=== PATIENT | male | born 1965 | race Two or more races ===

== ENCOUNTER 2021-04-26 14:56 | Outpatient (REF) | payer MEDICARE, MEDICAID, SELFPAY ==
[2021-04-26 16:01] LABS: COVID-19 Test Negative (Negative)
== END 2021-04-26 14:57 | disposition home or self-care (01) ==
LOC: HO.LAB 14:56
PROVIDERS: Visit Provider Internal Medicine
DX: Z20.822 Contact with and (suspected) exposure to COVID-19 (principal)
CPT/HCPCS: 36415; 87635; C9803

== ENCOUNTER 2023-03-11 06:05 | Emergency (ER) | payer MEDICARE, MEDICAID, SELFPAY ==
[2023-03-11 06:07] VITALS: BP 161/87; PULSE 106; RESP 16; TEMP 37.5; O2SAT 95; BMI 26.6
--- NOTE | 2023-03-11 06:46 | PC.NURSE ---
Pt presents to ED with a rash in the groin area. Pt states it has been present for a year. He has been treated with creams that make the rash worse. Pt states he is in 9/10 pain at rest, and sitting down increases the pain. Pt denies SOB, chest pain, or trouble using the bathroom. Pt did endorse nausea, no vomiting. Pt has not been able to sleep or eat in two days due to the pain.
--- NOTE | 2023-03-11 07:07 | ED_ITS ---
HPI - Skin/Abscess/Foreign Bdy General Chief complaint: Skin/Abscess/Foreign Body Stated complaint: Rash Time Seen by Provider: 03/11/23 06:30 Source: patient and RN notes reviewed Mode of arrival: ambulatory Limitations: no limitations History of Present Illness HPI narrative: This is a 57-year-old male, with history of hypertension, presenting to the emergency department for evaluation of groin rash for the last year. Patient states that the rash is painful and extremely itchy. He states that he went to communications and signals supervisor for this problem and was prescribed mometasone, calcipotriene and patroleom which she has been using and these creams are only making his rash worse. He denies any fevers or chills. Denies any urinary symptoms. No other complaints or concerns at this time. MD complaint: rash Onset (ago): year(s) Location: genitals Quality: burning and pruritic Pain Consistency: constant Relieving factors: none Exacerbating factors: none Context: none Associated symptoms: denies other symptoms Treatments prior to arrival: none Related Data Previous Rx's Medication Instructions Recorded clotrimazole 1 % topical cream 1 appl topical BID 4 weeks #45 03/11/23 grams Allergies Allergy/AdvReac Type Severity Reaction Status Date / Time No Known Allergies Allergy Verified 03/11/23 07:06 Review of Systems Review of Systems: Yes all other systems are reviewed and are negative [facility] Social History Social History Smoked in Last 30 Days: No Use of substances other than those prescribed or required for medical reasons: No Advance Directives: No Advance Directives Information Provided: No Physical Exam Vital Signs: Vital Signs: Last Vital Signs Temp 98.7 F 03/11/23 07:30 Pulse 84 03/11/23 07:30 Resp 17 03/11/23 07:30 BP 126/87 03/11/23 07:30 Pulse Ox 96 03/11/23 07:30 O2 Del Method Room Air 03/11/23 07:30 BMI result Body Mass Index 26.6 Const: Other: General: Awake, alert, and oriented X3. No acute distress. HEENT: Normal inspection CVS: Normal heart rate and rhythm. Pulses normal. Respiratory: No respiratory distress Skin: Warm, dry, no rashes noted to exposed skin. Normal skin color. Normal skin turgor. Extremities: Normal to inspection : Examination performed with crusher supervisor (Sharmila, Nurse, and supervising physician, Dr. Hyde) present. Scrotum and intergrinous region of thighs with beefy, red and macerated skin. Does not extend to the perineum. No profound warmth. Foul yeast odor noted. Neuro: Oriented X 3. No motor deficit. No sensory deficit. Course Reevaluation(s) Reevaluation #1: Blood glucose 141, patient had a coffee with sugar prior to arrival. Will discharge on antifungal cream twice a day for the next 4 weeks. Advised to return with any new or worsening symptoms. Patient agrees with plan. Patient stable for discharge. Time: 07:39 Medical Decision Making Medical Decision Making MDM Narrative: This is a 57-year-old male, with history of hypertension, presenting to the emergency department for evaluation of groin rash for the last year. On arrival, mildly hypertensive at 161/87, pulse 106. Patient tearful during examination due to pain. DDX candidia, cellulitis, scrotal abscess, contact dermatitis. Examination findings consistent with fungal rash. Does not appear cellulitic. Discussed findings with patient. Advised to discontinue the mometasone as this is likely causing the rash to worsen. Advised to cleanse area with gentle soap and apply topical cream for the next 4 weeks. Patient understands and agrees with plan. Will obtain blood glucose level to ensure no hyperglycemia. Differential Diagnosis Differential Diagnoses: The differential diagnosis associated with the presentation includes See above Lab Data Labs: Lab Results 03/11/23 Range/Units 07:36 POC Glucose 141 H (60-115) mg/dL Discharge Plan Discharge Clinical Impression: Tinea cruris Patient Disposition: Home, Self-Care Instructions: Jock Itch (ED), Skin Yeast Infection (ED) Additional Instructions: You presented to the emergency department due to a groin rash. Your rash is likely due to a fungal infection. Please apply topical cream for the next 4 weeks. You may gently wash area with sensitive soap. Follow-up with primary care physician. Any new or worsening symptoms occur, please return for re-evaluation. Prescriptions: New clotrimazole 1 % cream 1 appl topical BID 28 Days Qty: 45 0RF Stand Alone Forms: Work/School Release Interventions: ED Discharge Assessment Last Done: 03/11/23 07:56 Discharge Date/Time: 03/11/23 07:56
[2023-03-11 07:30] VITALS: BP 126/87; PULSE 84; RESP 17; TEMP 37.1; O2SAT 96
[2023-03-11 07:40] LABS: Glucose, Whole Blood 141 mg/dL (60-115)
--- NOTE | 2023-03-11 07:48 | PC.NURSE ---
PT IS A/O X 4 NO SOB/ELYSE NOTED SPEAKS IN FULL SENTENCES. PT C/O PURVI GROIN PAIN. PT HAS A FUNGAL INFECTION TO PURVI GROIN AND POST SCROTAL AREA WITH A VERY UNPLEASANT ODOUR WHICH PT STATES IS VERY PAINFUL. PT SEEN BY MLP AWARE OF PLAN OF CARE.
== END 2023-03-11 07:56 | disposition home or self-care (01) ==
PROVIDERS: Emergency Provider Emergency Medicine
DX: B35.6 Tinea cruris (principal)
CPT/HCPCS: 82947; 99283; 99284

== ENCOUNTER 2023-04-09 12:52 | Emergency (ER) | payer MEDICARE, MEDICAID, SELFPAY ==
[2023-04-09 13:23] VITALS: BP 169/92; PULSE 90; RESP 16; TEMP 37.6; O2SAT 100; BMI 28.1
--- NOTE | 2023-04-09 13:26 | ED_ITS ---
HPI - Skin/Abscess/Foreign Bdy General Chief complaint: Wound/Laceration Stated complaint: Jock itch Time Seen by Provider: 04/09/23 15:40 Source: patient Mode of arrival: ambulatory Limitations: no limitations History of Present Illness HPI narrative: This is a 57-year-old male presenting with recurrent rashes in the groin region, patient has been seen here and by Dermatology for this rash multiples times. He reports Dermatology sent him a medication that did not help however the cream that he was given here helped. Patient reports this rash looks exactly like when he has gotten in the past. Slightly itchy and foul smelling. Denies fevers, chills, nausea, vomiting, abdominal pain, chest pain, shortness of breath. Related Data Previous Rx's Medication Instructions Recorded clotrimazole 1 % topical cream 1 appl topical BID 4 weeks #45 03/11/23 grams clotrimazole 1 % topical cream 1 appl topical BID 4 weeks #45 04/09/23 grams fluconazole 150 mg tablet 150 mg PO Q3D 2 doses #2 tabs 04/09/23 ketorolac 10 mg tablet 10 mg PO TID PRN pain 5 days #15 04/09/23 tabs Allergies Allergy/AdvReac Type Severity Reaction Status Date / Time No Known Allergies Allergy Verified 03/11/23 07:06 Review of Systems Review of Systems: Constitutional : No Weight loss, No Fever, No Chills, No Fatigue, No Malaise ENT/Mouth : No sore throat, No Rhinorrhea Eyes: No Eye Pain, No Swelling, No Redness Cardiovascular : No Chest Pain, No SOB, No Dyspnea on Exertion, No Orthopnea, No Edema, No Palpitations Respiratory : No Cough, No Sputum, No Wheezing Gastrointestinal : No Nausea, No Vomiting, No Diarrhea, No Constipation, No abdominal Pain, No Hematochezia, No Melena Genitourinary : No Dysuria, No Urinary Frequency, No Hematuria, Musculoskeletal : No joint pain, No Myalgias, No Joint Swelling Skin : No Skin Lesions, + rash Neuro : No Weakness, No Numbness, No Dizziness, No Headache Psych : No Anxiety/Panic, No Depression All other systems reviewed and are negative Yes all other systems are reviewed and are negative PMFSH Past Medical History Attestation statement: The following information was validated with the patient. Source: old records reviewed and nursing notes reviewed Physical Exam Vital Signs: Vital Signs: Last Vital Signs Temp 98.8 F 04/09/23 16:22 Pulse 88 04/09/23 16:22 Resp 18 04/09/23 16:22 BP 168/88 H 04/09/23 16:22 Pulse Ox 99 04/09/23 16:22 O2 Del Method Room Air 04/09/23 16:22 BMI result Body Mass Index 28.1 vss Appearance: Alert.? Oriented X3.? No acute distress.? Head: Normocephalic, atraumatic, no step-offs or deformities Eyes: Pupils equal, round and reactive to light.? Neck: Normal inspection.? Neck supple.? CVS: Pulses normal.? Respiratory: No respiratory distress. Skin: Skin warm and dry.? Normal skin color.? Normal skin turgor.? Extremities: No lower extremity edema.? No calf ttp. 5/5 strength to bilateral upper and lower extremities Sensative exam:Examination performed with cardiovascular surgical tech Odalis OVIEDO Scrotum and intergrinous region of thighs with beefy, red and macerated skin tender to touchDoes not extend to the perineum. No profound warmth. Foul yeast odor noted. Neuro: Oriented X 3.? No motor deficit.? No sensory deficit. CN 2-12 intact Course Course Course Narrative: This is a rapid medical exam. Deferred additional HPI, ROS, PE to primary provider. 56 yo male here with itching rash to groin x 2 yrs. Unable to visualize in triage. VSS Medical Decision Making Medical Decision Making [facility] Narrative: 1623 57-year-old male presents with rash in groin region ongoing for the past year and a half PE Examination w/ scrotum and intergrinous region of thighs with beefy, red and macerated skin, tender to touch. Does not extend to the perineum. No profound warmth. Foul yeast odor noted. History and physical exam concerning for fungal infection/rash including differentials Nikia, cellulitis. Unlikely necrotizing infection, abscess, fourniers Plan- will d/c w/ diflucan and clotrimazole. Differential Diagnosis Differential Diagnoses: The differential diagnosis associated with the presentation includes History and physical exam concerning for fungal infection/rash including differentials Nikia, cellulitis. Unlikely necrotizing infection, abscess, fourniers Admission/Observation Consideration of admission/observation: Escalation of care including admission/observation considered Unlikely Tests considered The following testing was considered but not selected: No signs of abscess or gangrene no indication for imaging Critical Care Time Critical Care Time Critical Care Time: No Discharge Plan Discharge Clinical Impression: Adonay amezcua Patient Disposition: Home, Self-Care Instructions: Adonay Amezcua (ED) Additional Instructions: Take your medications as prescribed. If you were prescribed antibiotics today, it is important that you take your medication to their entirety, do not skip any doses, do not finish them early. Follow-up with your primary care provider this week. Return to the emergency department with new or worsening symptoms. Such as fevers, chills, chest pain, shortness of breath, nausea, vomiting, dizziness, headache, vision changes, lethargy In case of emergency call 911 Toradol has been sent to your pharmacy, you tolerated this well in the department. Please take this as prescribed do not take this with ibuprofen, or other NSAIDs, do not mix this with alcohol. Side effects of this medication including increased risk for bleeding and possible kidney injury. Prescriptions: New clotrimazole 1 % cream 1 appl topical BID 28 Days Qty: 45 0RF fluconazole 150 mg tablet 150 mg PO Q3D Qty: 2 0RF ketorolac 10 mg tablet 10 mg PO TID PRN (Reason: pain) 5 Days Qty: 15 0RF No Action clotrimazole 1 % cream 1 appl topical BID 28 Days Qty: 45 0RF Referrals: Physician,Unknown J [Primary Care Provider] - Stand Alone Forms: Work/School Release
[2023-04-09 16:22] VITALS: BP 168/88; PULSE 88; RESP 18; TEMP 37.1; O2SAT 99
[2023-04-09] MEDS: Ketorolac Tromethamine 30 MG/ML VIAL IM (16:40)
== END 2023-04-09 17:00 | disposition home or self-care (01) ==
LOC: HO.ED 16:59
PROVIDERS: Emergency Provider Emergency Medicine
DX: B35.6 Tinea cruris (principal)
CPT/HCPCS: 96372; 99283; 99284; J1885

== ENCOUNTER 2023-05-16 15:31 | Inpatient (IN) | payer MEDICARE, MEDICAID, SELFPAY ==
[2023-05-16 15:37] VITALS: BP 122/68; PULSE 114; O2SAT 98
[2023-05-16 16:05] VITALS: BP 108/76; PULSE 111; RESP 20; TEMP 37.1; O2SAT 97; BMI 26.6
--- NOTE | 2023-05-16 16:05 | ED.DIZZY ---
HPI - Dizziness General Chief Complaint: Abdominal Pain Stated Complaint: N/V/D,DIZZY PER EMS Time Seen by Provider: 05/16/23 18:15 Source: patient, RN notes reviewed and old records reviewed Mode of arrival: ambulatory Limitations: no limitations History of Present Illness HPI Narrative: 57-year-old male with past medical history significant for colon cancer presents for evaluation of vomiting and weakness. Patient reports that he started last night with generalized abdominal pain, significant vomiting and watery diarrhea Denies any black or bloody stool He denies any chest pain, shortness of breath, cough Denies any known sick contacts fevers, chills Patient reports he has no history of cardiac disease and is not on dialysis. He states he has had issues in the past with his kidneys requiring IV hydration Related Data Previous Rx's Medication Instructions Recorded clotrimazole 1 % topical cream 1 appl topical BID 4 weeks #45 03/11/23 grams clotrimazole 1 % topical cream 1 appl topical BID 4 weeks #45 04/09/23 grams fluconazole 150 mg tablet 150 mg PO Q3D 2 doses #2 tabs 04/09/23 ketorolac 10 mg tablet 10 mg PO TID PRN pain 5 days #15 04/09/23 tabs Allergies Allergy/AdvReac Type Severity Reaction Status Date / Time No Known Allergies Allergy Verified 05/16/23 16:07 Review of Systems Constitutional: Constitutional: Denies chills and Denies fever(s) Eyes: Eyes: Denies blurry vision ENT: Denies sore throat Cardiovascular: Cardiovascular: Denies chest pain and Denies dyspnea Respiratory: Respiratory: Denies cough and Denies dyspnea Gastrointestinal: Gastrointestinal: Reports abdominal pain, Denies melena, Denies hematochezia, Denies constipation, Denies diarrhea, Reports nausea and Reports vomiting Genitourinary: Comments: Decreased urination Musculoskeletal: Musculoskeletal: Denies back pain Integumentary/Breasts: Skin/Breast: Denies rash PMFSH Social History Social History Smoked in Last 30 Days: Yes Use of substances other than those prescribed or required for medical reasons: Yes Substance Use Type: Marijuana Advance Directives: No Physical Exam Vital Signs: Vital Signs: Last Vital Signs Temp 98 F 05/16/23 18:00 Pulse 107 H 05/16/23 18:00 Resp 20 05/16/23 18:00 BP 109/86 05/16/23 18:00 Pulse Ox 98 05/16/23 18:00 O2 Del Method Room Air 05/16/23 18:00 BMI result Body Mass Index 26.6 Const: General: healthy appearing, comfortable, no acute distress, alert and awake Nutritional Appearance: well nourished Orientation/consciousness: patient oriented x3 HEENT: Head: Yes normocephalic and Yes atraumatic Eyes: Eyelids: Yes eyelids normal Conjunctivae: conjunctivae normal Sclerae: sclerae normal Corneas: corneas normal Pupils: Equal, round and reactive pupils present EOM: EOMs intact bilaterally Neck: Neck: Yes full ROM Resp: Effort & Inspection: normal respiratory effort, able to speak in complete sentences, no audible wheezes and not labored Auscultation: clear to auscultation bilaterally Cardio: Rate: regular rate Rhythm: regular rhythm GI: Inspection: No distended Palpation (GI): Soft to palpation, not firm, nontender, no guarding and not rigid Skin: General skin exam: elasticity normal Neuro: General: patient oriented x3 Cranial nerves: Yes Equal, round and reactive pupils present and Yes Bilaterally intact EOM present Cognition (Neuro): normal cognition Course Course Course Narrative: RME: 57 yo w/ PMHx HTN, presenting to the ED c/o diarrhea, nausea, vomiting, abdominal pain, lightheadedness & weakness x yesterday. EKG, labs, UA, orthostatics ordered Full HPI, ROS and PE to be performed by primary ED provider. Reevaluation(s) Reevaluation #1: Patient remains with abdominal pain and nausea, continues is 90 chest pain. Repeat troponin was 183. Discussed with the hospitalist will admit the patient for MARU. It is felt that the elevated troponins likely related to the significant kidney injury. His EKG is nonischemic, he has never had chest pain, therefore we will not administer any heparin or aspirin Time: 20:26 Medications Administered Generic Name Dose Route Start Last Admin Trade Name Freq PRN Reason Stop Dose Admin Sodium Chloride 1,000 mls @ 999 mls/hr 05/16/23 18:30 05/16/23 18:30 Ns IV 05/16/23 20:30 999 mls/hr .Q1H1M ANITHA Administration Discontinued Medications Generic Name Dose Route Start Last Admin Trade Name Freq PRN Reason Stop Dose Admin Metoclopramide HCl 10 mg 05/16/23 18:23 05/16/23 18:30 Metoclopramide Hcl 10 Mg/2 Ml Vial IVPUSH 05/16/23 18:24 10 mg ONCE ONE Administration Medical Decision Making Medical Decision Making [facility] Narrative: 57-year-old male presents for evaluation of vomiting abdominal pain and weakness. He has numerous lab abnormalities including a white count 11.1, hemoglobin 19.4 and hematocrit 56.5. The elevated hemoglobin hematocrit is likely related to dehydration as the patient's renal function is also significantly elevated he has a creatinine of 4.15. We do not have any previous lab value is in our system but the patient states he does not have chronic kidney disease. Will get a CT scan of the abdomen pelvis to rule out obstructive uropathy. His CO2 is low at 18 with an anion gap of 21 which is likely related to metabolic acidosis from vomiting and diarrhea. Patient's troponin is elevated to 141.4. I suspect this is likely related to the renal disease lateral than primary cardiac issue as the patient has not had any chest pain. We will repeat a troponin and a new EKG. Initial EKG was sinus tachycardia rate of 109 beats per minute. There is some questionable changes in the ST segments inferior leads. Differential Diagnosis Differential Diagnoses: The differential diagnosis associated with the presentation includes Acute kidney injury Dehydration Urinary obstruction NSTEMI Coronary artery disease Weakness Viral symptom Admission/Observation Consideration of admission/observation: Escalation of care including admission/observation considered (Patient will require admission for acute kidney injury, dehydration) Consult Healthcare Provider Management of the patient was discussed with: Hospitalist (Dr. Gomes will admit the patient for acute kidney injury in the setting of vomiting and diarrhea) Lab Data [facility] Lab Attestation statement: I reviewed the patient's lab results. As above 05/16/23 16:27 05/16/23 16:27 Labs: Lab Results 05/16/23 05/16/23 05/16/23 Range/Units 16:27 18:44 19:50 WBC 11.1 H (4.8-10.8) X10*3/uL RBC 6.71 H (4.60-5.80) X10*6/uL Hgb 19.4 H (14.0-18.0) g/dl Hct 56.5 H (42.0-52.0) % MCV 84.2 (80.0-98.0) fL MCH 28.9 (27.0-33.0) pg MCHC 34.3 (31.0-36.0) g/dl RDW 13.4 (11.0-16.0) % Plt Count 250 (160-400) X10*3/uL MPV 9.6 (9.4-12.4) fL Immature Gran % (Auto) 0.5 H (0.0-0.4) % Neut % (Auto) 85.1 H (45-73) % Lymph % (Auto) 7.4 L (20-40) % [place] % (Auto) 6.6 (2-11) % Eos % (Auto) 0.0 (0-4) % Baso % (Auto) 0.4 (0-2) % Lymph # (Auto) 0.8 L (1.2-4.9) X10*3/uL [place] # (Auto) 0.7 (0.1-1.2) X10*3/uL Eos # (Auto) 0.0 (0.0-0.4) X10*3/uL Baso # (Auto) 0.0 (0.0-0.2) X10*3/uL Abs Immat Gran (auto) 0.05 H (0.00-0.03) X10*3/uL Absolute Neuts (auto) 9.5 H (2.0-8.3) x10*3/uL Absolute Nucleated RBC 0.000 (0.0-0.012) X10*3/uL Nucleated RBC % (auto) 0.0 (0.0-0.2) /100WBC O2 Saturation 99.0 % ABG pH at Pt Temp 7.41 (7.35-7.45) ABG pCO2 at Pt Temp 23 L (32-45) mmHg ABG pO2 at Pt Temp 102 (83-108) mmHg ABG HCO3 15 L (22-26) mmol/L ABG Base Excess (Actual) -6.6 mmol/L Sodium 142 (135-145) mmol/L Potassium 3.5 (3.3-5.1) mmol/L Chloride 107 (96-108) mmol/L Carbon Dioxide 18 L (22-29) mmol/L Anion Gap 21 H (12-20) BUN 51 H (9-16) mg/dL Creatinine 4.15 H* (0.5-1.4) mg/dL Estim Creat Clear Calc 18.5 Estimated GFR 15 Random Glucose 134 H (60-115) mg/dL Calcium 11.1 H (8.4-10.2) mg/dL Magnesium 2.3 (1.6-2.6) mg/dL Total Bilirubin 1.0 (0.0-1.0) mg/dL Direct Bilirubin 0.3 (0.0-0.5) mg/dL AST 23 (5-37) U/L ALT 22 (0-40) U/L Alkaline Phosphatase 100 (39-117) U/L Troponin I High Sens 141.4 H* 183.8 H* (<3.5-35.0) ng/L Total Protein 12.0 H (6.5-8.0) g/dL Albumin 5.0 (3.5-5.0) g/dL Lipase 27 (8-78) U/L Influenza Type A (PCR) NEGATIVE (Negative) Influenza Type B (PCR) NEGATIVE (Negative) RSV RNA Qual (PCR) NEGATIVE (Negative) SARS-CoV-2 RNA (RT-PCR) NEGATIVE (Negative) Independent Interpretation I performed an independent interpretation of an: EKG (Repeat EKG shows sinus tachycardia rate of [address] changes in the inferior leads are no longer evident) and CT Scan (Fluid-filled small bowel loops.) Radiology Impression Discussion of test interpretation with radiology: I have reviewed the radiologist's reading. (Fluid-filled small bowel loops without definitive transition or obstruction. Consider ileus) Discharge Plan Discharge Clinical Impression: Acute kidney injury, Acute dehydration, Elevated troponin Patient Disposition: Admitted As Inpatient Prescriptions: No Action clotrimazole 1 % cream 1 appl topical BID 28 Days Qty: 45 0RF fluconazole 150 mg tablet 150 mg PO Q3D Qty: 2 0RF ketorolac 10 mg tablet 10 mg PO TID PRN (Reason: pain) 5 Days Qty: 15 0RF clotrimazole 1 % cream 1 appl topical BID 28 Days Qty: 45 0RF
[2023-05-16 16:58] LABS: Alanine Aminotransferase 22 U/L (0-40); Alkaline Phosphatase 100 U/L (39-117); Anion Gap 21 (12-20); Aspartate Amino Transferase 23 U/L (5-37); Bilirubin Direct 0.3 mg/dL (0.0-0.5); Blood Urea Nitrogen 51 mg/dL (9-16); Calcium 11.1 mg/dL (8.4-10.2); Carbon Dioxide 18 mmol/L (22-29); Chloride 107 mmol/L (96-108); Creatinine Clr Calc Pharmacy 18.5; Estimated Glomerular Filt Rate 15; Glucose Random 134 mg/dL (60-115); Lipase 27 U/L (8-78); Magnesium 2.3 mg/dL (1.6-2.6); Potassium 3.5 mmol/L (3.3-5.1); Sodium 142 mmol/L (135-145)
[2023-05-16 18:00] VITALS: BP 109/86; PULSE 107; RESP 20; TEMP 36.6; O2SAT 98
--- NOTE | 2023-05-16 20:32 | PM.IMHP ---
History of Present Illness Date of Service: 05/16/23 Chief Complaint: Vomiting and diarrhea This is a 57-year-old male with pertinent history of colon cancer status post surgery, chemotherapy, essential hypertension who presents to the emergency department for evaluation of vomiting and diarrhea. Patient states that his symptoms started 1 day prior to presentation. He has been having multiple episodes of nonbloody emesis and nonbloody diarrhea. Also has associated generalized abdominal discomfort. No inciting factor as per the patient. He feels weak and dehydrated. No fever, chills, chest discomfort, palpitations, shortness of breath, changes in urinary habits. No sick contacts. In the emergency department, creatinine found to be elevated. Review of Systems Constitutional: Constitutional: Reports fatigue, Reports lethargy and Reports weakness Cardiovascular: Cardiovascular: Reports no additional cardiovascular complaints Respiratory: Respiratory: Reports no additional respiratory complaints Gastrointestinal: Gastrointestinal: Reports loose stools, Reports nausea and Reports vomiting Genitourinary: Genitourinary: Reports no additional male genitourinary complaints Neurologic: Reports weakness Endocrine: Endocrine: Reports fatigue [facility] Medical History (Updated 05/16/23 @ 20:53 by Melina Gomes MD) Essential hypertension Colon cancer Pertinent family history: No family history of early CAD Social History Smoked in Last 30 Days: Yes Use of substances other than those prescribed or required for medical reasons: Yes Substance Use Type: Marijuana Advance Directives: No Meds Allergies Allergy/AdvReac Type Severity Reaction Status Date / Time No Known Allergies Allergy Verified 05/16/23 16:07 Active Medications: Current Medications Acetaminophen (Acetaminophen 325 Mg Tablet) 650 mg PO Q6H PRN PRN Reason: Pain, Mild (Pain Scale 1-3) Enoxaparin Sodium (Enoxaparin Sodium 30 Mg/0.3 Ml Syringe) 30 mg SUBCUT Q24H [facility]ITH[facility] Lactated Ringer's (Lr) 1,000 mls @ 125 mls/hr IVCONT .Q8H ONE Stop: 05/17/23 04:29 Lactated Ringer's (Lr) 1,000 mls @ 999 mls/hr IV .Q1H1M ONE Stop: 05/16/23 21:32 Melatonin (Melatonin 3 Mg Tablet) 6 mg PO BEDTIME PRN PRN Reason: Insomnia Ondansetron HCl (Ondansetron Hcl 4 Mg/2 Ml Vial) 4 mg IVPUSH Q8H PRN PRN Reason: Nausea and Vomiting Sodium Chloride (0.9 % Sodium Chloride Flush 3 Ml Syringe) 3 ml IVFLUSH QSHIFT ANITH[facility] Physical Exam Vital Signs and Narrative: Vital Signs: Last Vital Signs Temp 98 F 05/16/23 18:00 Pulse 107 H 05/16/23 18:00 Resp 20 05/16/23 18:00 BP 109/86 05/16/23 18:00 Pulse Ox 98 05/16/23 18:00 O2 Del Method Room Air 05/16/23 18:00 BMI result Body Mass Index 26.6 Middle-aged male lying in bed in no distress Neck supple, no JVD, dry mucous membranes Regular rate and rhythm, S1-S2 heard Regular breath sounds bilaterally, no wheezing or crackles appreciated Abdomen with generalized tenderness, no guarding, no rigidity, no rebound tenderness Patient is awake, alert and oriented to self, place, time and person ; no focal motor deficit Psych: Normal mood No pedal edema Results Labs 05/16/23 16:27 05/16/23 16:27 Labs: Laboratory Results - last 24 hr 05/16/23 05/16/23 16:27 18:44 MCV 84.2 MCH 28.9 MCHC 34.3 RDW 13.4 Plt Count 250 MPV 9.6 Immature Gran % (Auto) 0.5 H Neut % (Auto) 85.1 H Lymph % (Auto) 7.4 L [place] % (Auto) 6.6 Eos % (Auto) 0.0 Baso % (Auto) 0.4 Lymph # (Auto) 0.8 L [place] # (Auto) 0.7 Eos # (Auto) 0.0 Baso # (Auto) 0.0 Abs Immat Gran (auto) 0.05 H Absolute Neuts (auto) 9.5 H Absolute Nucleated RBC 0.000 Nucleated RBC % (auto) 0.0 O2 Saturation 99.0 ABG pH at Pt Temp 7.41 ABG pCO2 at Pt Temp 23 L ABG pO2 at Pt Temp 102 ABG HCO3 15 L ABG Base Excess (Actual) -6.6 Anion Gap 21 H Estim Creat Clear Calc 18.5 Estimated GFR 15 Random Glucose 134 H Calcium 11.1 H Magnesium 2.3 Total Bilirubin 1.0 Direct Bilirubin 0.3 AST 23 ALT 22 Alkaline Phosphatase 100 Total Protein 12.0 H Albumin 5.0 Lipase 27 Influenza Type A (PCR) NEGATIVE Influenza Type B (PCR) NEGATIVE RSV RNA Qual (PCR) NEGATIVE SARS-CoV-2 RNA (RT-PCR) NEGATIVE Imaging Radiologist's Impressions: Impressions Abdomen/Pelvis CT 05/16/23 18:59 IMPRESSION: 1. Status post right partial colectomy. 2. Gas is present in the biliary tree in this patient status post cholecystectomy. 3. Dilated fluid-filled small bowel loops without definite site of obstruction or transition or possibly ileus. 4. Bilateral enlarged adrenal glands with water density Hounsfield units consistent with benign adenomas. 5. Other incidental findings as described above. Fleischner guidelines were followed. Assessment and Plan (1) Acute kidney injury: Status: Acute Plan This is a 57-year-old male with pertinent history of colon cancer status post surgery, chemotherapy, essential hypertension who presents to the emergency department for evaluation of vomiting and diarrhea. #. Intractable vomiting and diarrhea: Imaging without definitive acute abnormality. Supportive care for now. Clear liquid diet and advance as tolerated. Stool studies pending. Consider specialist consult if symptoms continue. #. Acute kidney injury, likely prerenal in the setting of above: Unclear baseline. Monitor creatinine and urine output with crystalloid resuscitation. Avoid nephrotoxins. #. Polycythemia, likely relative: Continue to monitor with crystalloid resuscitation #. Elevated troponin, likely type 2 in the setting of increased demand. No chest pain. Will trend. #. Essential hypertension: Hold lisinopril in the setting of MARU Med rec pending DVT prophylaxis: Lovenox Full code Admit as inpatient and will require two night minimum hospital stay for IV crystalloid resuscitation, monitoring of kidney function (as above), which is not possible in a lesser acute setting. Quality Stroke Does the patient have a stroke diagnosis?: No VTE Prior VTE?: No VTE Risk Level:: Medical - moderate - high VTE Device Contraindication: Treatment Not Indicated VTE Drug Contraindication: N/A - Med Ordered
--- NOTE | 2023-05-16 22:20 | PHA.MEDREC ---
Pharmacy Consult ? Medication Reconciliation Pharmacy has completed the medication reconciliation.
[2023-05-17 00:20] VITALS: BP 118/83; PULSE 100; RESP 16; O2SAT 97
--- NOTE | 2023-05-17 01:25 | PC.NURSE ---
The Rn took over care at 1:00am, pt transferred into hospital bed, fluids running, pt resting in bed.
--- NOTE | 2023-05-17 02:57 | PC.NURSE ---
pt attempted to give sample, urine and stool contamination. pt will attempt again.
[2023-05-17 04:54] VITALS: BP 112/73; PULSE 106; RESP 18; TEMP 36.6; O2SAT 98
--- NOTE | 2023-05-17 04:56 | PC.NURSE ---
ua and GI panel collected and sent
[2023-05-17 05:09] LABS: Appearance Urine Turbid; Color Urine Dark Yellow; Glucose Urine UA Negative (Negative); Leukocyte Esterase Urine Negative (Negative); Nitrite Urine Negative (Negative); UMIC TRIGGER UACC YES; Urine Blood Moderate (2+) (Negative); Urine Ketones Trace mg/dL (Negative); Urine Protein 100 (2+) mg/dL (Neg-Trace)
[2023-05-17 05:22] LABS: Bacteria Urine Trace (None Seen); Granular Casts Urine Present; Hyaline Casts Urine >20 /LPF (0-2); RBC Urine 0-2 /HPF (0-2); WBC Urine 0-5 /HPF (0-5)
[2023-05-17 06:21] LABS: Creatinine Urine 247.51 mg/dL
[2023-05-17 06:27] LABS: MANUAL DIFF FLAG NO
[2023-05-17 06:29] LABS: Basophils Percent Auto 0.4 % (0-2); Hematocrit 48.6 % (42.0-52.0); Hemoglobin 16.9 g/dl (14.0-18.0); Imm Gran Abs Auto 0.03 X10*3/uL (0.00-0.03); Imm Gran Pct Auto 0.4 % (0.0-0.4); Lymphocytes Absolute Auto 0.6 X10*3/uL (1.2-4.9); Lymphocytes Percent Auto 7.1 % (20-40); Mean Corpuscular HGB Conc 34.8 g/dl (31.0-36.0); Mean Corpuscular Hemoglobin 30.2 pg (27.0-33.0); Mean Corpuscular Volume 86.9 fL (80.0-98.0); Mean Platelet Volume 9.8 fL (9.4-12.4); Monocytes Absolute Auto 0.7 X10*3/uL (0.1-1.2); Monocytes Percent Auto 8.7 % (2-11); Neutrophils Absolute Auto 6.8 x10*3/uL (2.0-8.3); Neutrophils Percent Auto 83.4 % (45-73); Platelet Count 159 X10*3/uL (160-400); Red Blood Count 5.59 X10*6/uL (4.60-5.80); Red Cell Distribution Width 13.4 % (11.0-16.0); White Blood Count 8.1 X10*3/uL (4.8-10.8)
[2023-05-17 06:36] LABS: CDiff Gene PCR NEGATIVE (Negative)
[2023-05-17 06:47] LABS: Anion Gap 17 (12-20); Blood Urea Nitrogen 60 mg/dL (9-16); Calcium 9.1 mg/dL (8.4-10.2); Carbon Dioxide 16 mmol/L (22-29); Chloride 108 mmol/L (96-108); Creatinine Clr Calc Pharmacy 18.1; Estimated Glomerular Filt Rate 14; Glucose Random 96 mg/dL (60-115); Potassium 3.4 mmol/L (3.3-5.1); Sodium 138 mmol/L (135-145)
[2023-05-17 08:00] VITALS: BP 134/89; PULSE 98; RESP 17; TEMP 36.2; O2SAT 96
[2023-05-17 08:06] LABS: Alanine Aminotransferase 15 U/L (0-40); Albumin Level 3.6 g/dL (3.5-5.0); Alkaline Phosphatase 72 U/L (39-117); Aspartate Amino Transferase 21 U/L (5-37); Bilirubin Direct 0.3 mg/dL (0.0-0.5); Bilirubin Total 0.9 mg/dL (0.0-1.0); Total Protein 8.5 g/dL (6.5-8.0)
--- NOTE | 2023-05-17 08:41 | MHC.CM.PN ---
CM met with Patient at bedside and addressed IMM with him, providing Patient with the original and a copy has been placed on the chart. Patient lives alone in an apartment and he required no services nor DME BILLING AND INSURANCE COORDINATOR. Home/self care is the goal and CM has initiated and will follow for dc planning. Patient's Friend/Bri is the HCP and the PCP is from [facility] in [place].
[2023-05-17 09:04] LABS: Troponin-I High Sensitivity 75.5 ng/L (<3.5-35.0)
[2023-05-17 14:21] VITALS: BP 120/84; PULSE 104; RESP 18; TEMP 37.1; O2SAT 96
--- NOTE | 2023-05-17 14:33 | HO.PM.IMPN ---
Subjective Subjective Date of Service: 05/17/23 Interval History: c/o diarrhea no lightheadedness no abd pain Review of Systems Review of Systems: Yes all other systems are reviewed and are negative Physical Exam Vital Signs: Vital Signs: Last Vital Signs Temp 97.1 F 05/17/23 08:00 Pulse 98 05/17/23 08:00 Resp 17 05/17/23 08:00 BP 134/89 05/17/23 08:00 Pulse Ox 96 05/17/23 08:00 O2 Del Method Room Air 05/17/23 08:00 BMI result Body Mass Index 26.6 Gen: in no acute distress HEENT: sclera anicteric, moist mucus membranes Neck: supple Lungs: clear to auscultation bilaterally Heart: regular rate and rhythm, no murmurs Abd: soft, non-tender, non-distended Ext: no edema Skin: warm/well-perfused Neuro: alert and oriented x3, no focal findings Psych: appropriate affect Objective Data Active Medications Acetaminophen (Acetaminophen 325 Mg Tablet) 650 mg PO Q6H PRN PRN Reason: Pain, Mild (Pain Scale 1-3) Last Admin: 05/17/23 13:49 Dose: 650 mg Documented By: JAMIE Enoxaparin Sodium (Enoxaparin Sodium 30 Mg/0.3 Ml Syringe) 30 mg SUBCUT Q24H [facility] Last Admin: 05/17/23 00:36 Dose: 30 mg Documented By: DEMETRI Sodium Chloride (Ns) 1,000 mls @ 125 mls/hr IVCONT .Q8H [facility] Last Admin: 05/17/23 11:01 Dose: 125 mls/hr Documented By: JAMIE Latanoprost (Latanoprost 0.005 % Ophth Penny 2.5 Ml Drops) 1 drop EYE-BOTH BEDTIME [facility] Melatonin (Melatonin 3 Mg Tablet) 6 mg PO BEDTIME PRN PRN Reason: Insomnia Multivitamins/Vitamin C (Multivitamin Tablet) 1 tab PO DAILY [facility] Last Admin: 05/17/23 08:24 Dose: 1 tab Documented By: JAMIE Non-Formulary Medication (Apremilast [Otezla]) 30 mg PO BID [facility] Omeprazole (Omeprazole 20 Mg Capsule.) 20 mg PO BID [facility] Last Admin: 05/17/23 08:24 Dose: 20 mg Documented By: JAMIE Ondansetron HCl (Ondansetron Hcl 4 Mg/2 Ml Vial) 4 mg IVPUSH Q8H PRN PRN Reason: Nausea and Vomiting Sodium Chloride (0.9 % Sodium Chloride Flush 3 Ml Syringe) 3 ml IVFLUSH QSHIFT [facility] Last Admin: 05/17/23 07:42 Dose: Not Given Documented By: JAMIE Non-Admin Reason: IV Running Triamcinolone Acetonide (Triamcinolone Acet 0.1 % Oint 15 Gm Tube) 1 appl TOPICAL DAILY [facility] Last Admin: 05/17/23 08:26 Dose: Not Given Documented By: JAMIE Non-Admin Reason: Med Not Available Labs 05/17/23 06:20 05/17/23 06:20 Labs: Laboratory Results - last 24 hr 05/16/23 05/16/23 05/17/23 16:27 18:44 04:47 MCV 84.2 MCH 28.9 MCHC 34.3 RDW 13.4 Plt Count 250 MPV 9.6 Immature Gran % (Auto) 0.5 H Neut % (Auto) 85.1 H Lymph % (Auto) 7.4 L [place] % (Auto) 6.6 Eos % (Auto) 0.0 Baso % (Auto) 0.4 Lymph # (Auto) 0.8 L [place] # (Auto) 0.7 Eos # (Auto) 0.0 Baso # (Auto) 0.0 Abs Immat Gran (auto) 0.05 H Absolute Neuts (auto) 9.5 H Absolute Nucleated RBC 0.000 Nucleated RBC % (auto) 0.0 O2 Saturation 99.0 ABG pH at Pt Temp 7.41 ABG pCO2 at Pt Temp 23 L ABG pO2 at Pt Temp 102 ABG HCO3 15 L ABG Base Excess (Actual) -6.6 Anion Gap 21 H Estim Creat Clear Calc 18.5 Estimated GFR 15 Random Glucose 134 H Calcium 11.1 H Magnesium 2.3 Total Bilirubin 1.0 Direct Bilirubin 0.3 AST 23 ALT 22 Alkaline Phosphatase 100 Total Protein 12.0 H Albumin 5.0 Lipase 27 Urine Color Dark Yellow Urine Appearance Turbid Urine pH 5.0 Ur Specific [place] 1.020 Urine Protein 100 (2+) H Urine Glucose (UA) Negative Urine Ketones Trace Urine Blood Moderate (2+) H Urine Nitrite Negative Ur Leukocyte Esterase Negative Urine RBC 0-2 Urine WBC 0-5 Ur Squamous Epith Cells 6-10 Urine Bacteria Trace Hyaline Casts >20 Granular Casts Present Ur Random Sodium 32.0 Urine Creatinine 247.51 C. difficile Tox B Gene NEGATIVE Influenza Type A (PCR) NEGATIVE Influenza Type B (PCR) NEGATIVE RSV RNA Qual (PCR) NEGATIVE SARS-CoV-2 RNA (RT-PCR) NEGATIVE 05/17/23 06:20 MCV 86.9 MCH 30.2 MCHC 34.8 RDW 13.4 Plt Count 159 L D MPV 9.8 Immature Gran % (Auto) 0.4 Neut % (Auto) 83.4 H Lymph % (Auto) 7.1 L [place] % (Auto) 8.7 Eos % (Auto) 0.0 Baso % (Auto) 0.4 Lymph # (Auto) 0.6 L [place] # (Auto) 0.7 Eos # (Auto) 0.0 Baso # (Auto) 0.0 Abs Immat Gran (auto) 0.03 Absolute Neuts (auto) 6.8 Absolute Nucleated RBC 0.000 Nucleated RBC % (auto) 0.0 O2 Saturation ABG pH at Pt Temp ABG pCO2 at Pt Temp ABG pO2 at Pt Temp ABG HCO3 ABG Base Excess (Actual) Anion Gap 17 Estim Creat Clear Calc 18.1 Estimated GFR 14 Random Glucose 96 Calcium 9.1 D Magnesium Total Bilirubin 0.9 Direct Bilirubin 0.3 AST 21 ALT 15 Alkaline Phosphatase 72 Total Protein 8.5 H Albumin 3.6 Lipase Urine Color Urine Appearance Urine pH Ur Specific [place] Urine Protein Urine Glucose (UA) Urine Ketones Urine Blood Urine Nitrite Ur Leukocyte Esterase Urine RBC Urine WBC Ur Squamous Epith Cells Urine Bacteria Hyaline Casts Granular Casts Ur Random Sodium Urine Creatinine C. difficile Tox B Gene Influenza Type A (PCR) Influenza Type B (PCR) RSV RNA Qual (PCR) SARS-CoV-2 RNA (RT-PCR) Assessment and Plan (1) Acute kidney injury: Status: Acute Plan 57yo M with hx colon CA s/p resection + HTN + psoriasis presenting with diarrhea + vomiting x1d and found to have MARU MARU - prerenal, FENa 0.4%, continue isotonic fluid resuscitation, hold lisinopril, recheck BMP in AM diarrhea/N/V - Cdiff neg, GI panel pending, clears globulin gap - check SPEP/ANA + HIV, could be due to hemoconcentration, recheck LFTs in AM troponin elevation - likely due to MARU, no ischemic symptoms or EKG changes HTN - hold lisinopril as above VTE ppx - LMWH dispo - eventual home In my clinical judgment, the patient requires continued inpatient hospitalization for the following reasons: MARU, IV fluids Total time managing care of this patient today: 35 minutes. Quality Stroke Does the patient have a stroke diagnosis?: No VTE Prior VTE?: No VTE Risk Level:: Medical - moderate - high VTE Device Contraindication: Treatment Not Indicated VTE Drug Contraindication: N/A - Med Ordered
[2023-05-17 14:41] LABS: Adenovirus F 40/41 Not Detected (Not Detect.); Astrovirus Not Detected (Not Detect.); Campylobacter Not Detected (Not Detect.); Cryptosporidium Not Detected (Not Detect.); Cyclospora cayetanensis Not Detected (Not Detect.); E. coli EAEC Not Detected (Not Detect.); E. coli EPEC Not Detected (Not Detect.); E. coli ETEC Not Detected (Not Detect.); E. coli STEC Not Detected (Not Detect.); Entamoeba histolytica Not Detected (Not Detect.); Giardia lamblia Not Detected (Not Detect.); Norovirus GI/GII Not Detected (Not Detect.); Plesiomonas shigelloides Not Detected (Not Detect.); Rotavirus A Detected (Not Detect.); Salmonella Not Detected (Not Detect.); Sapovirus Not Detected (Not Detect.); Shigella sp./EIEC Not Detected (Not Detect.); Vibrio Not Detected (Not Detect.); Vibrio Cholerae Not Detected (Not Detect.); Yersinia enterocolitica Not Detected (Not Detect.)
[2023-05-17 15:38] VITALS: BP 134/94; PULSE 94; RESP 18; TEMP 36.9; O2SAT 97
--- NOTE | 2023-05-17 16:11 | MHC.IC ---
POSITIVE for ROTAVIRUS. Strict hand washing with soap and water required. Clean with bleach.
[2023-05-17 19:08] VITALS: BP 140/90; PULSE 99; RESP 18; TEMP 37.4; O2SAT 97
--- NOTE | 2023-05-17 22:36 | PC.NURSE ---
pt c/o severe headache stating tylenol has - effect. md informed,
[2023-05-18 04:00] VITALS: BP 127/81; PULSE 98; RESP 16; TEMP 37.6; O2SAT 97
[2023-05-18 05:34] VITALS: BP 127/81; PULSE 98
[2023-05-18 08:00] VITALS: BP 128/80; PULSE 120; RESP 28; TEMP 38.3; O2SAT 93
[2023-05-18 09:36] VITALS: TEMP 37.6
--- NOTE | 2023-05-18 12:18 | HO.PM.IMPN ---
Subjective Subjective Date of Service: 05/18/23 Interval History: febrile to 101 this AM diarrhea improving N/V improving Review of Systems Review of Systems: Yes all other systems are reviewed and are negative Physical Exam Vital Signs: Vital Signs: Last Vital Signs Temp 99.6 F 05/18/23 09:36 Pulse 120 H 05/18/23 08:00 Resp 28 H 05/18/23 08:00 BP 128/80 05/18/23 08:00 Pulse Ox 93 05/18/23 08:00 O2 Del Method Room Air 05/18/23 08:00 BMI result Body Mass Index 26.6 Gen: in no acute distress HEENT: sclera anicteric, moist mucus membranes Neck: supple Lungs: clear to auscultation bilaterally Heart: regular rate and rhythm, no murmurs Abd: soft, non-tender, non-distended Ext: no edema Skin: warm/well-perfused Neuro: alert and oriented x3, no focal findings Psych: appropriate affect Objective Data Active Medications Acetaminophen (Acetaminophen 325 Mg Tablet) 650 mg PO Q6H PRN PRN Reason: Pain, Mild (Pain Scale 1-3) Last Admin: 05/18/23 08:32 Dose: 650 mg Documented By: CELSO Enoxaparin Sodium (Enoxaparin Sodium 30 Mg/0.3 Ml Syringe) 30 mg SUBCUT Q24H [facility] Last Admin: 05/17/23 20:02 Dose: 30 mg Documented By: MALCOLM Lactated Ringer's (Lr) 1,000 mls @ 150 mls/hr IVCONT .Q6H40M [facility] Last Admin: 05/18/23 08:30 Dose: 150 mls/hr Documented By: CELSO Latanoprost (Latanoprost 0.005 % Ophth Penny 2.5 Ml Drops) 1 drop EYE-BOTH BEDTIME [facility] Last Admin: 05/17/23 22:36 Dose: 1 drop Documented By: MALCOLM Melatonin (Melatonin 3 Mg Tablet) 6 mg PO BEDTIME PRN PRN Reason: Insomnia Multivitamins/Vitamin C (Multivitamin Tablet) 1 tab PO DAILY [facility] Last Admin: 05/18/23 08:31 Dose: 1 tab Documented By: CELSO Non-Formulary Medication (Apremilast [Otezla]) 30 mg PO BID [facility] Omeprazole (Omeprazole 20 Mg Capsule.Dr) 20 mg PO BID [facility] Last Admin: 05/18/23 08:32 Dose: 20 mg Documented By: CELSO Ondansetron HCl (Ondansetron Hcl 4 Mg/2 Ml Vial) 4 mg IVPUSH Q8H PRN PRN Reason: Nausea and Vomiting Sodium Chloride (0.9 % Sodium Chloride Flush 3 Ml Syringe) 3 ml IVFLUSH QSHIFT [facility] Last Admin: 05/18/23 08:33 Dose: Not Given Documented By: CELSO Non-Admin Reason: IV Running Triamcinolone Acetonide (Triamcinolone Acet 0.1 % Oint 15 Gm Tube) 1 appl TOPICAL DAILY [facility] Last Admin: 05/18/23 11:01 Dose: Not Given Documented By: CELSO Non-Admin Reason: Med Not Available Comments: pharmacy contacted Labs 05/18/23 06:00 05/18/23 06:00 Labs: Laboratory Results - last 24 hr 05/17/23 05/18/23 04:47 06:00 MCV 83.7 MCH 28.9 MCHC 34.6 RDW 13.1 Plt Count 116 L D MPV 10.1 Absolute Nucleated RBC 0.000 Nucleated RBC % (auto) 0.0 Anion Gap 16 Estim Creat Clear Calc 29.8 Estimated GFR 26 Random Glucose 86 Calcium 8.5 D Total Bilirubin 0.9 Direct Bilirubin 0.3 AST 21 ALT 16 Alkaline Phosphatase 59 Total Protein 8.0 Albumin 3.5 Stl C. cayetanensis PCR Not Detected Stool Rotavirus A PCR Detected A Stl Adenov F 40/41 PCR Not Detected Stool Astrovirus (PCR) Not Detected Stool Campylobacter PCR Not Detected Stool Cryptosporidium PCR Not Detected Stl Sh Tox Pr E STEC PCR Not Detected Stool E coli O157 PCR Not applicable Stl Enterotoxigenic E PCR Not Detected Stool EPEC (PCR) Not Detected Stool EAEC (PCR) Not Detected Stl E. histolytica PCR Not Detected Stool Giardia Lamblia PCR Not Detected Stl P. shigelloides PCR Not Detected Stool Salmonella PCR Not Detected Stool Sapovirus (PCR) Not Detected Stl Shigella/EIEC PCR Not Detected St Y.enterocolitica PCR Not Detected Stool Vibrio (PCR) Not Detected Stl Vibrio cholerae PCR Not Detected Stl Norovirus GI/GII PCR Not Detected HIV 1&2 Ab/P24 Ag 4thGn Reactive H Assessment and Plan (1) Acute kidney injury: Status: Acute Plan d3 57yo M with hx colon CA s/p resection + HTN + psoriasis presenting with diarrhea + vomiting x1d and found to have MARU from rotavirus infection MARU - prerenal, FENa 0.4% - continue isotonic fluid resuscitation with LR - hold lisinopril - improving; recheck BMP in AM rotavirus infection - advance diet, prn loperamide diarrhea/N/V - Cdiff neg, GI panel pending, clears HIV preliminary positive - checked due to elevated globulin gap which may have been due to hemoconcentration; awaiting confirmatory immunoassay, if positive will need ID consultation troponin elevation - likely due to MARU, no ischemic symptoms or EKG changes HTN - hold lisinopril as above VTE ppx - LMWH dispo - eventual home In my clinical judgment, the patient requires continued inpatient hospitalization for the following reasons: MARU, IV fluids Total time managing care of this patient today: 35 minutes. Quality Stroke Does the patient have a stroke diagnosis?: No VTE Prior VTE?: No VTE Risk Level:: Medical - moderate - high VTE Device Contraindication: Treatment Not Indicated VTE Drug Contraindication: N/A - Med Ordered
[2023-05-18 15:43] VITALS: BP 118/70; PULSE 110; RESP 24; TEMP 37.7; O2SAT 96
[2023-05-18 19:50] VITALS: BP 130/83; PULSE 99; RESP 16; TEMP 36.3; O2SAT 95
[2023-05-19 00:15] VITALS: BP 127/82; PULSE 99; RESP 18; TEMP 36.9; O2SAT 95
[2023-05-19 08:00] VITALS: BP 125/86; PULSE 85; RESP 16; TEMP 36.5; O2SAT 95
[2023-05-19 16:00] VITALS: BP 128/85; PULSE 98; RESP 18; TEMP 36.4; O2SAT 95
--- NOTE | 2023-05-19 16:35 | HO.PM.IMPN ---
Subjective Subjective Date of Service: 05/19/23 Interval History: Complaining of persistent diarrhea 1 bowel movement this morning, also complaining of abdominal pain no nausea, no vomiting tolerating diet, no fevers, no chills. Review of Systems All other system reviewed and negative. Physical Exam Vital Signs: Vital Signs: Last Vital Signs Temp 97.7 F 05/19/23 08:00 Pulse 85 05/19/23 08:00 Resp 16 05/19/23 08:00 BP 125/86 05/19/23 08:00 Pulse Ox 95 05/19/23 08:00 O2 Del Method Room Air 05/19/23 08:00 BMI result Body Mass Index 26.6 Const: Other: Gen: Awake and alert, in no acute distress HEENT: sclera anicteric, moist mucus membranes Neck: supple Lungs: clear to auscultation bilaterally Heart: regular rate and rhythm, no murmurs Abd: soft, mild mid abdominal discomfort with palpation, non-distended Ext: no edema Skin: warm/well-perfused Neuro: alert and oriented x3, no focal findings Psych: appropriate affect Objective Data Active Medications Acetaminophen (Acetaminophen 325 Mg Tablet) 650 mg PO Q6H PRN PRN Reason: Pain, Mild (Pain Scale 1-3) Last Admin: 05/18/23 08:32 Dose: 650 mg Documented By: CELSO Dicyclomine HCl (Dicyclomine Hcl 10 Mg Capsule) 10 mg PO TIDAC PRN PRN Reason: abdominal pain Last Admin: 05/19/23 10:55 Dose: 10 mg Documented By: CLAY Enoxaparin Sodium (Enoxaparin Sodium 30 Mg/0.3 Ml Syringe) 30 mg SUBCUT Q24H [facility] Last Admin: 05/18/23 20:46 Dose: 30 mg Documented By: OTIS Lactated Ringer's (Lr) 1,000 mls @ 150 mls/hr IVCONT .Q6H40M [facility] Last Admin: 05/19/23 12:23 Dose: 150 mls/hr Documented By: CLAY Latanoprost (Latanoprost 0.005 % Ophth Penny 2.5 Ml Drops) 1 drop EYE-BOTH BEDTIME [facility] Last Admin: 05/18/23 20:45 Dose: 1 drop Documented By: OTIS Loperamide HCl (Loperamide Hcl 2 Mg Capsule) 2 mg PO Q4H PRN PRN Reason: diarrhoae Melatonin (Melatonin 3 Mg Tablet) 6 mg PO BEDTIME PRN PRN Reason: Insomnia Last Admin: 05/18/23 23:31 Dose: 6 mg Documented By: OTIS Multivitamins/Vitamin C (Multivitamin Tablet) 1 tab PO DAILY [facility] Last Admin: 05/19/23 09:32 Dose: 1 tab Documented By: CLAY Non-Formulary Medication (Apremilast [Otezla]) 30 mg PO BID [facility] Omeprazole (Omeprazole 20 Mg Capsule.) 20 mg PO BID [facility] Last Admin: 05/19/23 09:32 Dose: 20 mg Documented By: CLAY Ondansetron HCl (Ondansetron Hcl 4 Mg/2 Ml Vial) 4 mg IVPUSH Q8H PRN PRN Reason: Nausea and Vomiting Sodium Chloride (0.9 % Sodium Chloride Flush 3 Ml Syringe) 3 ml IVFLUSH QSHIFT [facility] Last Admin: 05/19/23 15:50 Dose: Not Given Documented By: CLAY Non-Admin Reason: IV Running Triamcinolone Acetonide (Triamcinolone Acet 0.1 % Oint 15 Gm Tube) 1 appl TOPICAL DAILY [facility] Last Admin: 05/19/23 09:34 Dose: Not Given Documented By: CLAY Non-Admin Reason: Patient Refused Labs 05/18/23 06:00 05/19/23 06:27 Labs: Laboratory Results - last 24 hr 05/19/23 06:27 Hold Purple Top SEE NOTE Anion Gap 11 L Estim Creat Clear Calc 36.6 Estimated GFR 32 Random Glucose 89 Calcium 8.3 L Assessment and Plan (1) Acute kidney injury: Status: Acute Plan 57yo M with hx colon CA s/p resection + HTN + psoriasis presenting with diarrhea + vomiting x1d and found to have MARU from rotavirus infection MARU likely pre renal due to GI loss continue IV fluids, hold lisinopril avoid nephrotoxins and follow BMP rotavirus infection - tolerating diet will change diet to low-fiber, lactose-free, continue prn loperamide, nausea vomiting resolved, diarrhea slowing down - Cdiff neg, GI panel showed rotavirus HIV preliminary positive - checked due to elevated globulin gap which may have been due to hemoconcentration; awaiting confirmatory immunoassay, if positive will need ID consultation troponin elevation - likely due to MARU, no ischemic symptoms or EKG changes HTN -stable blood pressure continue to hold lisinopril as above VTE ppx - LMWH dispo - eventual home In my clinical judgment, the patient requires continued inpatient hospitalization for the following reasons: MARU, IV fluids Total time managing care of this patient today: 35 minutes. Quality Stroke Does the patient have a stroke diagnosis?: No VTE Prior VTE?: No VTE Risk Level:: Medical - moderate - high VTE Device Contraindication: Treatment Not Indicated VTE Drug Contraindication: N/A - Med Ordered
[2023-05-19 20:00] VITALS: BP 137/94; PULSE 89; RESP 19; TEMP 36.7; O2SAT 96
[2023-05-20 00:29] VITALS: BP 150/86; PULSE 81; RESP 18; TEMP 36.1; O2SAT 97
[2023-05-20 08:00] VITALS: BP 141/89; PULSE 82; RESP 16; TEMP 36.4; O2SAT 96
--- NOTE | 2023-05-20 12:03 | PM.DS ---
DS: Providers Provider Date of Service: 05/21/23 Date of admission: 05/16/23 20:31 Primary care physician: Mulu Miranda MD DS: Diagnosis Discharge Diagnosis (1) Acute kidney injury: Status: Acute DS: Summary Hospital Course Hospital Course: Date of Service: 05/16/23 Chief Complaint: Vomiting and diarrhea This is a 57-year-old male with pertinent history of colon cancer status post surgery, chemotherapy, essential hypertension who presents to the emergency department for evaluation of vomiting and diarrhea. Patient states that his symptoms started 1 day prior to presentation. He has been having multiple episodes of nonbloody emesis and nonbloody diarrhea. Also has associated generalized abdominal discomfort. No inciting factor as per the patient. He feels weak and dehydrated. No fever, chills, chest discomfort, palpitations, shortness of breath, changes in urinary habits. No sick contacts. In the emergency department, creatinine found to be elevated. Hospital course: 57yo M with hx colon CA s/p resection + HTN + psoriasis presenting with diarrhea + vomiting x1d and found to have MARU from rotavirus infection MARU likely pre renal due to GI loss resolved with IV fluid, recommend to resume lisinopril and drink plenty of fluids , patient noted to have elevated troponin likely due to MARU no skin joaquín changes were noted on EKG and patient had no chest discomfort.. Rotavirus infection noted on stool studies, patient treated with IV fluids, anti diarrheals, nausea, vomiting resolved, diarrhea has improved, diet was gradually advanced, patient is tolerating diet with no recurrent symptoms, C diff toxin negative. HIV preliminary positive, checked due to elevated globulin gap which may have been due to hemo concentration; confirmatory immunoassay, are pending recommend outpatient follow-up with PCP to obtain result . HTN -stable blood pressure recommend to resume lisinopril. Time Attestation Discharge coordination time: Greater than 30 minutes Quality: Safe Use of Opioids Does Pt have an Active Cancer Diagnosis on the Problem List?: No Quality: Stroke Does the patient have a stroke diagnosis?: No Physical Exam Vital Signs: Vital Signs: Last Vital Signs Temp 97.5 F 05/20/23 08:00 Pulse 82 05/20/23 08:00 Resp 16 05/20/23 08:00 BP 141/89 H 05/20/23 08:00 Pulse Ox 96 05/20/23 08:00 O2 Del Method Room Air 05/20/23 08:00 BMI result Body Mass Index 26.6 Const: Other: Gen: Awake and alert, in no acute distress HEENT: sclera anicteric, moist mucus membranes Neck: supple Lungs: clear to auscultation bilaterally Heart: regular rate and rhythm, no murmurs Abd: soft, nontender , non-distended Ext: no edema Skin: warm/well-perfused Neuro: alert and oriented x3, no focal findings. Psych: appropriate affect. DS: Data Data Completed and Pending Labs on day of discharge: Laboratory Results - last 24 hr 05/20/23 05/20/23 05:48 10:35 Sodium 137 138 Potassium 3.0 L 3.6 Chloride 110 H 110 H Carbon Dioxide 21 L 21 L Anion Gap 9 L 11 L BUN 25 H 23 H Creatinine 1.37 1.34 Estim Creat Clear Calc 56.1 57.4 Estimated GFR 53 55 Random Glucose 86 100 Calcium 8.6 8.8 Discharge Plan Discharge Anticipated Discharge Date/Time: 05/20/23 11:55 Patient Disposition: Home, Self-Care Discharge Diagnosis: Acute kidney injury Acute gastroenteritis Referrals: Mulu Miranda MD [Primary Care Provider] - 1 Week Discharge Medications: New dicyclomine 10 mg Capsule 10 mg PO TIDAC PRN (Reason: abdominal pain) Qty: 20 0RF Continued multivitamin Tablet 1 tab PO DAILY latanoprost 0.005 % drops 1 drp ophthalmic (eye) BEDTIME amlodipine 10 mg tablet 10 mg PO DAILY omeprazole 20 mg capsule,delayed release(DR/EC) 20 mg PO BID Otezla 30 mg tablet 30 mg PO BID mometasone 0.1 % ointment 1 appl topical DAILY Discontinued lisinopril 40 mg tablet 40 mg PO DAILY Discharge Orders: Discharge Order (Routine); Ordered 05/20/23 Ordered By: Kelin Orellana Diet: Advance to usual diet Activity on Discharge: As tolerated Stand Alone Forms: Patient Portal Discharge page, Work/School Release Care Plan Goals: Acute kidney injury resolved Drink plenty of fluids, take bland diet that includes banana, pudding, bread, toast, rice,yougurt , avoid high-fiber diet likes salads and fruits and fried foods for next 2-3 days Take Bentyl 1 tablet as needed for abdominal cramps You might have 2-3 bowel movement for next few days stop lisinopril since noted to have soft blood pressure Follow pending labs with primary care physician Health Concerns: Continue all home medications Plan of Treatment: Follow-up with primary care physician call for appointment Assessment: As above Discharge Date/Time: 05/20/23 12:47
--- NOTE | 2023-05-20 12:10 | MHC.CM.PN ---
order for home, self-care. CM acknowledge.
[2023-05-22 10:45] LABS: HIV 1 Antibody POSITIVE (Abnormal); HIV 2 Antibody NEGATIVE
[2023-05-22 11:09] LABS: PES - Abn Protein Band 1 0.8 g/dL (NONE DETECTED); Prot Elec - Albumin 3.7 g/dL (3.8-4.8); Prot Elec - Alpha1 0.4 g/dL (0.2-0.3); Prot Elec - Alpha2 0.7 g/dL (0.5-0.9); Prot Elec - Beta 1 0.5 g/dL (0.4-0.6); Prot Elec - Beta 2 0.5 g/dL (0.2-0.5); Prot Elec - Gamma 2.4 g/dL (0.8-1.7); Prot Elec - Total Protein 8.2 g/dL (6.1-8.1)
[2023-05-22 13:33] LABS: IgA 333 mg/dL (47-310); IgG 2925 mg/dL (600-1640); IgM 114 mg/dL (50-300)
== END 2023-05-20 12:47 | disposition home or self-care (01) | DRG 392 ==
LOC: HO.ED 20:27 → HO.EDOVER 20:47 → HO.S3 05-17 13:17
PROVIDERS: Family Medicine; Physician Assistant; Admitting Provider Student in an Organized Health Care Education/Training Program; Emergency Provider Emergency Medicine; PCP Student in an Organized Health Care Education/Training Program; Visit Provider Hospitalist
DX: A08.0 Rotaviral enteritis (principal); N17.9 Acute kidney failure, unspecified; D75.1 Secondary polycythemia; R75 Inconclusive laboratory evidence of human immunodeficiency virus [HIV]; F17.210 Nicotine dependence, cigarettes, uncomplicated; I10 Essential (primary) hypertension; L40.9 Psoriasis, unspecified; Z20.822 Contact with and (suspected) exposure to COVID-19; Z71.6 Tobacco abuse counseling; Z85.038 Personal history of other malignant neoplasm of large intestine; Z79.899 Other long term (current) drug therapy
CPT/HCPCS: 0241U; 36415; 74176; 80048; 80076; 81001; 82570; 82784; 82803; 83690; 83735; 84165; 84300; 84484; 85025; 85027; 86334; 86701; 86702; 87389; 87493; 87507; 93005; 99285; J1650; J2405; J2765; J7120

== ENCOUNTER → 2023-05-16 16:07 | Outpatient (BNV) | payer MEDICARE, MEDICAID, SELFPAY | PROVIDERS: Admitting Provider Student in an Organized Health Care Education/Training Program; Emergency Provider Emergency Medicine; Visit Provider Internal Medicine Cardiovascular Disease | DX: R94.31 Abnormal electrocardiogram [ECG] [EKG] (principal); R00.0 Tachycardia, unspecified | CPT/HCPCS: 93010 ==

== ENCOUNTER → 2023-05-16 20:31 | Outpatient (BNV) | payer MEDICARE, MEDICAID, SELFPAY | PROVIDERS: Admitting Provider Student in an Organized Health Care Education/Training Program; Emergency Provider Emergency Medicine; Visit Provider Student in an Organized Health Care Education/Training Program | DX: N17.9 Acute kidney failure, unspecified (principal) | CPT/HCPCS: 99222; 99232; 99233; 99239 ==